=== PATIENT | male | born 1940 | race Two or more races ===

== ENCOUNTER 2017-12-24 19:02 | Inpatient (IN) | payer OTHER ==
[~2017-12-24] VITALS: Ht 177.8 cm; Wt 69.9 kg
[2017-12-25] MEDS ORDERED: LOSARTAN POTASS25 MG PO (11:18)
[2017-12-25] MEDS ORDERED: ARIMIDEZ PO (11:18)
[2017-12-25] MEDS ORDERED: ZOLADEX3.6 MG (11:19)
== END 2018-01-06 12:35 | disposition home or self-care (01) | DRG 583 ==
LOC: ADM 12-28 08:30 → CIR.AMB 12-28 08:30 → O/R 01-04 07:00 → SURG 01-04 07:00 → CIR.AMB 01-04 08:30 → EDSTATUS 01-04 08:30 → CIR.AMB 01-04 09:45 → SURG 01-04 11:53
PROVIDERS: Surgery
PROC: 0HTU0ZZ Resection of Left Breast, Open Approach (ICD-10-PCS; principal; 2018-01-04 09:45)
DX: C50.022 Malignant neoplasm of nipple and areola, left male breast (principal); S03.42XA Sprain of jaw, left side, initial encounter; R60.0 Localized edema

== ENCOUNTER 2017-12-27 07:16 | Outpatient (CLI) | payer OTHER ==
[~2017-12-27 07:16] MED LIST: ARIMIDEZ PO; LOSARTAN POTASS25 MG PO; ZOLADEX3.6 MG
== END 2017-12-27 07:32 | disposition home or self-care (01) ==
LOC: NUCLEAR 07:16
DX: I26.99 Other pulmonary embolism without acute cor pulmonale (principal); Z01.810 Encounter for preprocedural cardiovascular examination
CPT/HCPCS: 78452; 93017; A9500

== ENCOUNTER 2023-06-26 15:50 | Outpatient (CLI) | payer OTHER | END 2023-06-26 15:56 | disposition home or self-care (01) | LOC: RAD 15:50 | PROVIDERS: ATTEND Anesthesiology Pain Medicine | DX: S39.92XA Unspecified injury of lower back, initial encounter (principal) ==

== ENCOUNTER → 2023-07-02 | Outpatient (CLI) | payer OTHER | END | disposition home or self-care (01) | LOC: NUCLEAR 13:22 | PROVIDERS: ATTEND Anesthesiology Pain Medicine | DX: I73.9 Peripheral vascular disease, unspecified (principal) ==

== ENCOUNTER 2023-07-03 07:11 | Outpatient (CLI) | payer OTHER | END 2023-07-03 07:14 | disposition home or self-care (01) | LOC: NUCLEAR 07:11 | PROVIDERS: ATTEND Anesthesiology Pain Medicine | DX: I73.9 Peripheral vascular disease, unspecified (principal) ==

== ENCOUNTER 2023-08-06 10:42 | Inpatient (IN) | payer OTHER ==
[~2023-08-06] VITALS: Ht 177.8 cm; Wt 61.2 kg
--- NOTE | 2023-08-06 11:35 | NUR ---
PTE ALERTA Y ACTIVO ACOMPANADO POR HIJA, QUIEN REFIERE PTE SE PRESENTA DEVIL Y CON CONGESTION NASAL DESDE JUNO. HIJA REFIERE QUE PTE FUE OPERADO DE CANCER DE SENO TRAVIS.
--- NOTE | 2023-08-06 11:52 | NUR ---
PTE ALERTA Y ORIENTADO X3 EN COMPANIA DE FAMILIAR ES EVALUADO POR EL DR. BUCKNER EL CUAL ORDENA TRATAMIENTO MEDICO. SE OIRNETA SOBRE TRATAMIENTO ORDENADO, VERBALIZA ENTENDER. SE CANALIZA Y SE LYLA MUESTRAS DE LABORATORIO ISABELLE ORDEN MEDICA BAJO MEDIDAS ASEPTICAS Y SE ENVIAN A LABORATORIO. SE ADMINISTRA MEDICAMENTO ISABELLE ORDNE MEDICA. SE NOTIFICA XRAY PENDIENTE. SE JESSA EN OBSERVACION POR TRATAMIENTO.
[2023-08-06 11:54] LABS: HEMATOCRIT 37.4 % (39.0-48.0); HEMOGLOBIN 12.4 g/dL (13-16.00); MEAN CELL VOLUME 86.5 fL (80.0-100.00); MEAN CORPUSCULAR HEMOGLOBIN 28.7 pg (27.00-32.0); MEAN CORPUSCULAR HGB CONC 33.2 g/dl (32.0-36.0); PLATELET COUNT 364 K/uL (150-450); RED BLOOD COUNT 4.32 M/uL (4.00-6.00); RED CELL DISTRIBUTION WIDTH 14.8 % (11.5-14.5)
[2023-08-07 06:56] LABS: HEMATOCRIT 37.1 % (39.0-48.0); HEMOGLOBIN 12.3 g/dL (13-16.00); MEAN CELL VOLUME 87.5 fL (80.0-100.00); MEAN CORPUSCULAR HGB CONC 33.1 g/dl (32.0-36.0); PLATELET COUNT 318 K/uL (150-450); RED BLOOD COUNT 4.24 M/uL (4.00-6.00); RED CELL DISTRIBUTION WIDTH 15.1 % (11.5-14.5)
[2023-08-07] MEDS ORDERED: GABAPENTIN100 M2 (11:04)
[2023-08-07] MEDS ORDERED: ANASTROZOLE1 MG (11:05)
[2023-08-07] MEDS ORDERED: ABANEU-SL TABL1 EACH (11:05)
[2023-08-08 06:27] LABS: HEMATOCRIT 36.2 % (39.0-48.0); HEMOGLOBIN 12.3 g/dL (13-16.00); MEAN CELL VOLUME 86.2 fL (80.0-100.00); MEAN CORPUSCULAR HEMOGLOBIN 29.4 pg (27.00-32.0); MEAN CORPUSCULAR HGB CONC 34.1 g/dl (32.0-36.0); PLATELET COUNT 350 K/uL (150-450); RED BLOOD COUNT 4.19 M/uL (4.00-6.00); RED CELL DISTRIBUTION WIDTH 15.1 % (11.5-14.5)
[2023-08-09 07:33] LABS: HEMATOCRIT 35.1 % (39.0-48.0); HEMOGLOBIN 11.9 g/dL (13-16.00); MEAN CELL VOLUME 87.1 fL (80.0-100.00); MEAN CORPUSCULAR HEMOGLOBIN 29.5 pg (27.00-32.0); MEAN CORPUSCULAR HGB CONC 33.9 g/dl (32.0-36.0); PLATELET COUNT 335 K/uL (150-450); RED BLOOD COUNT 4.03 M/uL (4.00-6.00); RED CELL DISTRIBUTION WIDTH 14.7 % (11.5-14.5)
[2023-08-12 12:14] LABS: HEMATOCRIT 37.1 % (39.0-48.0); HEMOGLOBIN 12.8 g/dL (13-16.00); MEAN CELL VOLUME 86.7 fL (80.0-100.00); MEAN CORPUSCULAR HEMOGLOBIN 29.8 pg (27.00-32.0); MEAN CORPUSCULAR HGB CONC 34.4 g/dl (32.0-36.0); PLATELET COUNT 331 K/uL (150-450); RED BLOOD COUNT 4.29 M/uL (4.00-6.00); RED CELL DISTRIBUTION WIDTH 15.3 % (11.5-14.5)
[2023-08-14] MEDS ORDERED: BENZONATATE100 MG PO (11:28)
[2023-08-14] MEDS ORDERED: ABANEU-SL TABL1 EACH SL (11:28)
[2023-08-14] MEDS ORDERED: LASIX20 MG PO (11:28)
[2023-08-14] MEDS ORDERED: APETIGEN P12.5 MG/15 PO (11:28)
[2023-08-14] MEDS ORDERED: TUSSIN MUC100 MG/5 M PO (11:28)
[2023-08-14] MEDS ORDERED: TUSSIONEX PO (12:36)
== END 2023-08-14 15:32 | disposition home or self-care (01) | DRG 643 ==
LOC: ER 10:42 → MEDI 14:36 → SEC-K 14:36 → MEDI 16:23
PROVIDERS: Emergency Medicine; ADMIT Internal Medicine Geriatric Medicine; ATTEND Internal Medicine Geriatric Medicine
PROC: B246ZZZ Ultrasonography of Right and Left Heart (ICD-10-PCS; principal; 2023-08-06)
PROC: BB24ZZZ Computerized Tomography (CT Scan) of Bilateral Lungs (ICD-10-PCS; 2023-08-06)
PROC: B020ZZZ Computerized Tomography (CT Scan) of Brain (ICD-10-PCS; 2023-08-06)
PROC: 02HV33Z Insertion of Infusion Device into Superior Vena Cava, Percutaneous Approach (ICD-10-PCS; 2023-08-06)
PROC: 3E0F7GC Introduction of Other Therapeutic Substance into Respiratory Tract, Via Natural or Artificial Opening (ICD-10-PCS; 2023-08-06)
PROC: B54BZZZ Ultrasonography of Right Lower Extremity Veins (ICD-10-PCS; 2023-08-12)
DX: E22.2 Syndrome of inappropriate secretion of antidiuretic hormone (principal); I50.23 Acute on chronic systolic (congestive) heart failure; J15.7 Pneumonia due to Mycoplasma pneumoniae; J98.11 Atelectasis; E88.09 Other disorders of plasma-protein metabolism, not elsewhere classified; K59.00 Constipation, unspecified; I11.0 Hypertensive heart disease with heart failure; I87.2 Venous insufficiency (chronic) (peripheral)

== ENCOUNTER 2023-09-08 20:11 | Emergency (ER) | payer OTHER ==
[~2023-09-08] VITALS: Ht 177.8 cm; Wt 59.4 kg
[~2023-09-08 20:11] MED LIST changes: +ABANEU-SL TABL1 EACH; +ABANEU-SL TABL1 EACH SL; +ANASTROZOLE1 MG; +APETIGEN P12.5 MG/15 PO; +BENZONATATE100 MG PO; +GABAPENTIN100 M2; +LASIX20 MG PO; +TUSSIN MUC100 MG/5 M PO; +TUSSIONEX PO
[2023-09-08 22:16] LABS: URINE APPEARANCE Clear; URINE BILIRRUBIN Negative (NEGATIVE); URINE BLOOD Negative; URINE COLOR Yellow; URINE GLUCOSE Negative (NEGATIVE); URINE LEUKOCYTE Negative; URINE NITRATE Negative; URINE PROTEIN 30 (NEGATIVE)
[2023-09-08 22:18] LABS: HEMATOCRIT 38.1 % (39.0-48.0); HEMOGLOBIN 12.8 g/dL (13-16.00); MEAN CELL VOLUME 87.2 fL (80.0-100.00); MEAN CORPUSCULAR HEMOGLOBIN 29.3 pg (27.00-32.0); MEAN CORPUSCULAR HGB CONC 33.6 g/dl (32.0-36.0); PLATELET COUNT 360 K/uL (150-450); RED BLOOD COUNT 4.37 M/uL (4.00-6.00); RED CELL DISTRIBUTION WIDTH 15.9 % (11.5-14.5)
[2023-09-08 22:19] LABS: URINE BACTERIA 16.3 uL (0.0-1933); URINE EPITHELIAL CELLS 6.9 uL (0.0-38.8); URINE RBC 15.6 uL (0.0-20.8); URINE WBC 7.1 uL (0.0-23.2)
[2023-09-08 22:35] LABS: CALCIUM 8.8 mg/dL (8.5-10.1); CREATININE SERUM 0.57 mg/dL (0.70-1.30); GFR 135.86; POTASSIUM 4.36 mEq/L (3.5-5.1)
== END 2023-09-08 23:51 | disposition home or self-care (01) ==
LOC: ER 20:11
PROVIDERS: General Practice
DX: M54.50 Low back pain, unspecified (principal)
CPT/HCPCS: 36415; 96372; 99284; J1885

== ENCOUNTER 2023-09-10 02:01 | Emergency (ER) | payer OTHER ==
[~2023-09-10] VITALS: Ht 177.8 cm; Wt 59.4 kg
[2023-09-10] MEDS ORDERED: MIRALAX17 GM (02:32)
[2023-09-10 04:16] LABS: HEMOGLOBIN 12.9 g/dL (13-16.00); MEAN CELL VOLUME 87.1 fL (80.0-100.00); MEAN CORPUSCULAR HEMOGLOBIN 29.6 pg (27.00-32.0); MEAN CORPUSCULAR HGB CONC 33.9 g/dl (32.0-36.0); PLATELET COUNT 327 K/uL (150-450); RED BLOOD COUNT 4.37 M/uL (4.00-6.00); RED CELL DISTRIBUTION WIDTH 15.9 % (11.5-14.5)
[2023-09-10 04:30] LABS: PH,URINE 6.5 (5.0-8.0); URINE APPEARANCE Clear; URINE BILIRRUBIN Negative (NEGATIVE); URINE BLOOD Negative; URINE COLOR Yellow; URINE GLUCOSE Negative (NEGATIVE); URINE LEUKOCYTE Negative; URINE NITRATE Negative; URINE PROTEIN Negative (NEGATIVE); URINE UROBILINOGEN 0.2 E.U./dl
[2023-09-10 04:31] LABS: URINE EPITHELIAL CELLS 3.3 uL (0.0-38.8); URINE RBC 9.7 uL (0.0-20.8)
[2023-09-10 04:33] LABS: URINE WBC 1.6 uL (0.0-23.2)
[2023-09-10 04:43] LABS: ALBUMIN 3.4 gm/dL (3.4-5.0); BILIRUBIN TOTAL 0.76 mg/dL (0.3-1.2); CALCIUM 8.6 mg/dL (8.5-10.1); CREATININE SERUM 0.54 mg/dL (0.70-1.30); GFR 144.6; GLOBULINA 3.2 G/DL (2.4-3.5); POTASSIUM 3.85 mEq/L (3.5-5.1); TOTAL PROTEIN 6.6 gm/dL (6.4-8.2)
[2023-09-10] MEDS ORDERED: TRAM1TAB98 PO (14:18)
[2023-09-12] MEDS ORDERED: NAPROXEN500 MG PO (14:43)
[2023-09-12] MEDS ORDERED: ABANEU-SL TABL1 EACH SL (14:43)
[2023-09-12] MEDS ORDERED: LASIX20 MG (14:44)
[2023-09-12] MEDS ORDERED: DICLOFENAC POTA50 MG PO (17:05)
[2023-09-12] MEDS ORDERED: ZANAFLEX2 M1 PO (17:05)
== END 2023-09-10 15:11 | disposition home or self-care (01) ==
LOC: ER 02:01
PROVIDERS: General Practice
DX: M54.9 Dorsalgia, unspecified (principal); I10 Essential (primary) hypertension; R10.9 Unspecified abdominal pain; N28.1 Cyst of kidney, acquired; K57.30 Diverticulosis of large intestine without perforation or abscess without bleeding
CPT/HCPCS: 36415; 72100; 74177; 96365; 96366; 99284; J1885; J2270; J2360; J7042; Q9965

== ENCOUNTER → 2023-09-12 | Emergency (ER) | payer OTHER ==
[~2023-09-12] VITALS: Ht 177.8 cm; Wt 59.9 kg
[~2023-09-12] MED LIST changes: +DICLOFENAC POTA50 MG PO; +LASIX20 MG; +MIRALAX17 GM; +NAPROXEN500 MG PO; +TRAM1TAB98 PO; +ZANAFLEX2 M1 PO
[2023-09-12 16:10] LABS: HEMATOCRIT 38.4 % (39.0-48.0); MEAN CELL VOLUME 86.9 fL (80.0-100.00); MEAN CORPUSCULAR HEMOGLOBIN 29.5 pg (27.00-32.0); MEAN CORPUSCULAR HGB CONC 33.9 g/dl (32.0-36.0); PLATELET COUNT 336 K/uL (150-450); RED BLOOD COUNT 4.42 M/uL (4.00-6.00); RED CELL DISTRIBUTION WIDTH 15.9 % (11.5-14.5)
[2023-09-12 16:14] LABS: URINE APPEARANCE Clear; URINE BILIRRUBIN Negative (NEGATIVE); URINE BLOOD Negative; URINE COLOR Yellow; URINE GLUCOSE Negative (NEGATIVE); URINE LEUKOCYTE Negative; URINE NITRATE Negative; URINE PROTEIN Trace (NEGATIVE)
[2023-09-12 16:15] LABS: URINE BACTERIA 16.3 uL (0.0-1933); URINE EPITHELIAL CELLS 5.5 uL (0.0-38.8); URINE RBC 19.1 uL (0.0-20.8); URINE WBC 3.7 uL (0.0-23.2)
[2023-09-12 16:34] LABS: CALCIUM 8.7 mg/dL (8.5-10.1); CREATININE SERUM 0.65 mg/dL (0.70-1.30); GFR 116.75; POTASSIUM 4.51 mEq/L (3.5-5.1)
== END | disposition home or self-care (01) ==
LOC: ER 13:25
PROVIDERS: General Practice
DX: M54.50 Low back pain, unspecified (principal); M51.36 Other intervertebral disc degeneration, lumbar region; M43.16 Spondylolisthesis, lumbar region; Z85.3 Personal history of malignant neoplasm of breast
CPT/HCPCS: 36415; 72131; 96365; 96372; 99284; J1100; J1885

== ENCOUNTER 2023-10-01 10:45 | Outpatient (CLI) | payer OTHER ==
[2023-10-01] MEDS ORDERED: ZANAFLEX2 MG PO (18:08)
== END 2023-10-01 10:59 | disposition home or self-care (01) ==
LOC: SONOGRAMA 10:45
PROVIDERS: ATTEND Surgery
DX: N60.11 Diffuse cystic mastopathy of right breast (principal); N60.12 Diffuse cystic mastopathy of left breast; K80.20 Calculus of gallbladder without cholecystitis without obstruction; K70.9 Alcoholic liver disease, unspecified

== ENCOUNTER 2023-10-08 13:16 | Outpatient (CLI) | payer OTHER ==
[~2023-10-08 13:16] MED LIST changes: +ZANAFLEX2 MG PO
== END 2023-10-08 13:19 | disposition home or self-care (01) ==
LOC: NUCLEAR 13:16
DX: I73.9 Peripheral vascular disease, unspecified (principal)

== ENCOUNTER 2023-12-10 13:23 | Outpatient (CLI) | payer OTHER | END 2023-12-10 13:25 | disposition home or self-care (01) | LOC: SONOGRAMA 13:23 | PROVIDERS: ATTEND Urology | DX: R33.9 Retention of urine, unspecified (principal); R40.1 Stupor ==

== ENCOUNTER 2024-05-23 07:47 | Emergency (ER) | payer OTHER ==
[~2024-05-23] VITALS: Ht 177.8 cm; Wt 52.6 kg
[2024-05-23] MEDS ORDERED: MEDROL2 MG PO (07:57)
[2024-05-23] MEDS ORDERED: RINGERS SOLUTION,LACTATED 1,000 ML IV STA (08:29)
[2024-05-23 09:11] LABS: HEMATOCRIT 43.1 % (39.0-48.0); HEMOGLOBIN 14.8 g/dL (13-16.00); MEAN CORPUSCULAR HEMOGLOBIN 31.2 pg (27.00-32.0); MEAN CORPUSCULAR HGB CONC 34.3 g/dl (32.0-36.0); PLATELET COUNT 304 K/uL (150-450); RED BLOOD COUNT 4.74 M/uL (4.00-6.00); RED CELL DISTRIBUTION WIDTH 16.4 % (11.5-14.5)
[2024-05-23 10:02] LABS: ALBUMIN 3.3 gm/dL (3.4-5.0); BILIRUBIN TOTAL 0.78 mg/dL (0.3-1.2); BILIRUBIN,CONJUGATED 0.2 mg/dL (0.0-0.2); BILIRUBIN,UNCONJUGATED 0.58 mg/dL (0.0-0.6); CALCIUM 8.8 mg/dL (8.5-10.1); CREATININE SERUM 0.55 mg/dL (0.70-1.30); GFR 141.24; POTASSIUM 3.65 mEq/L (3.5-5.1); TOTAL PROTEIN 6.2 gm/dL (6.4-8.2)
[2024-05-23 10:24] LABS: PH,URINE 5.5 (5.0-8.0); URINE APPEARANCE Clear; URINE BILIRRUBIN Negative (NEGATIVE); URINE BLOOD Negative; URINE COLOR Yellow; URINE GLUCOSE Negative (NEGATIVE); URINE LEUKOCYTE Negative; URINE NITRATE Negative; URINE PROTEIN Negative (NEGATIVE)
[2024-05-23 10:28] LABS: URINE BACTERIA 12.5 uL (0.0-1933); URINE RBC 3.5 uL (0.0-20.8); URINE WBC 2.7 uL (0.0-23.2)
== END 2024-05-23 12:03 | disposition home or self-care (01) ==
LOC: ER 07:48
PROVIDERS: General Practice
DX: R34 Anuria and oliguria (principal); T38.5X5A Adverse effect of other estrogens and progestogens, initial encounter; I10 Essential (primary) hypertension

== ENCOUNTER 2024-05-23 11:52 | Outpatient (CLI) | payer OTHER ==
[~2024-05-23 11:52] MED LIST changes: +MEDROL2 MG PO
== END 2024-05-23 12:52 | disposition home or self-care (01) ==
LOC: SONOGRAMA 11:52
DX: R34 Anuria and oliguria (principal)

== ENCOUNTER 2024-05-30 00:46 | Emergency (ER) | payer OTHER ==
[~2024-05-30] VITALS: Ht 177.8 cm; Wt 54.0 kg
[2024-05-30] MEDS ORDERED: 0.9 % SODIUM CHLORIDE 500 ML IV STA (01:29)
[2024-05-30 01:56] LABS: HEMATOCRIT 41.5 % (39.0-48.0); HEMOGLOBIN 14.1 g/dL (13-16.00); MEAN CELL VOLUME 92.7 fL (80.0-100.00); MEAN CORPUSCULAR HEMOGLOBIN 31.6 pg (27.00-32.0); MEAN CORPUSCULAR HGB CONC 34.1 g/dl (32.0-36.0); PLATELET COUNT 287 K/uL (150-450); RED BLOOD COUNT 4.47 M/uL (4.00-6.00)
[2024-05-30 02:18] LABS: INR 1.08; PARTIAL THROMBOPLASTIN TIME 28.2 SECONDS (22.0-34.0); PROTHROMBIN TIME 11.3 SECONDS (9.0-11.5)
[2024-05-30 02:22] LABS: BILIRUBIN TOTAL 0.62 mg/dL (0.3-1.2); CALCIUM 8.4 mg/dL (8.5-10.1); CREATININE SERUM 0.46 mg/dL (0.70-1.30); GFR 173.58; GLOBULINA 2.8 G/DL (2.4-3.5); POTASSIUM 3.85 mEq/L (3.5-5.1); TOTAL PROTEIN 5.8 gm/dL (6.4-8.2)
[2024-05-30 02:24] LABS: URINE APPEARANCE Clear; URINE BILIRRUBIN Negative (NEGATIVE); URINE BLOOD Negative; URINE COLOR Yellow; URINE GLUCOSE Negative (NEGATIVE); URINE LEUKOCYTE Negative; URINE NITRATE Negative; URINE PROTEIN Negative (NEGATIVE)
[2024-05-30 02:28] LABS: URINE RBC 3.6 uL (0.0-20.8)
[2024-05-30 02:38] LABS: URINE EPITHELIAL CELLS 0.4 uL (0.0-38.8); URINE WBC 1.2 uL (0.0-23.2)
== END 2024-05-30 10:17 | disposition home or self-care (01) ==
LOC: ER 00:46
DX: R53.81 Other malaise (principal); R41.82 Altered mental status, unspecified; F03.90 Unspecified dementia, unspecified severity, without behavioral disturbance, psychotic disturbance, mood disturbance, and anxiety
CPT/HCPCS: 36415; 70450; 96365; 96366; 99284; J7042

== ENCOUNTER 2024-05-31 17:04 | Inpatient (IN) | payer OTHER ==
[~2024-05-31] VITALS: Ht 152.4 cm; Wt 53.5 kg
--- NOTE | 2024-05-31 17:18 | NUR ---
PTE LLEGA A ALIYA DE EMERGENCIAS EN AMBULANCIA EN COMPANIA DE HERNÁNDEZ HIJA QUIEN REFIERE QUE HERNÁNDEZ PADRE PRESENTA DEBILIDAD DESDE LA MANANA DE HOY. SE LYLA S/V Y SE UBICA EN MAGNUS AREA DE OBSERVACION.
[2024-05-31] MEDS ORDERED: 0.9 % SODIUM CHLORIDE 500 ML IV ONE (17:30)
--- NOTE | 2024-05-31 18:05 | NUR ---
PACIENTE ALERTA Y ORIENTADO EN PERSONA, NEGRITA QUIROZ EDUCA A FAMILIAR SOBRE PROCESO DE CHRISTINA DE MUESTRAS Y REFIERE ENTENDER. SE EJECUTAN ORDENES BAJO MEDIDAS ASEPTICAS.
[2024-05-31 18:23] LABS: HEMOGLOBIN 14.8 g/dL (13-16.00); MEAN CELL VOLUME 92.7 fL (80.0-100.00); MEAN CORPUSCULAR HEMOGLOBIN 31.2 pg (27.00-32.0); MEAN CORPUSCULAR HGB CONC 33.6 g/dl (32.0-36.0); PLATELET COUNT 292 K/uL (150-450); RED BLOOD COUNT 4.75 M/uL (4.00-6.00); RED CELL DISTRIBUTION WIDTH 16.3 % (11.5-14.5)
[2024-05-31 19:58] LABS: ABG PH 7.449 (7.35-7.45); ABG PO2 115.2 mmHg (80-100); ABG pCO2 32.7 mmHg (35-45); SaO2 98.7 %
[2024-05-31 19:59] LABS: BASE EXCESS -0.9 mmol/l; BICARBONATE 22.2 mmol/l (23-25); Tco2 23.2 mmol/l; allen test SATISFACTORY; o2 21 %; puncture site RADIAL RIGHT
[2024-05-31 20:18] LABS: INR 1.04; PROTHROMBIN TIME 10.9 SECONDS (9.0-11.5)
[2024-05-31 20:34] LABS: ALBUMIN 3.1 gm/dL (3.4-5.0); BILIRUBIN TOTAL 0.44 mg/dL (0.3-1.2); CALCIUM 8.3 mg/dL (8.5-10.1); CREATININE SERUM 0.32 mg/dL (0.70-1.30); GFR 263.87; GLOBULINA 2.5 G/DL (2.4-3.5); POTASSIUM 4.43 mEq/L (3.5-5.1); TOTAL PROTEIN 5.6 gm/dL (6.4-8.2); TSH 0.805 uIU/mL (0.358-3.74)
--- NOTE | 2024-05-31 23:09 | NUR ---
SE RECIBE PACIENTE ALERTA Y ORIENTADO EN PERSONA EN CAMA CON BARANDAS ELEVADAS POR SEGURIDAD EN COMPANIA DE FAMILIAR. RECIBIENDO IV'S 0.9NSS BAJANDO A 60ML/HR AREA DE VENOPUNCION ASAF DE EDEMA Y ERITEMA. PENDIENTE MUESTRA DE U/A Y RESULTADO DE CT. SE MANTIENE BAJO OBSERVACION.
--- NOTE | 2024-06-01 07:04 | NUR ---
SE RECIBE PTE ALERTA, ORIENTADO EN PERSONA. SE OBSERVA CON BUEN PATRON RESP. EN MAGNUS BAJA CON BARANDAS ELEVADAS POR SEGURIDAD. CANALIZACON PATENTE #20 PATENTE, ASAF DE EDEMA Y ERITEMA, RECIBIENDO IV FLUIDS. PEND ENTREGAR UA Y CONSULTA CON DR MALONEY
[2024-06-01] MEDS ORDERED: 0.9 % SODIUM CHLORIDE 1,000 ML IV SCH (12:45)
[2024-06-01] MEDS ORDERED: LOSARTAN POTASSIUM 25 MG TABLET PO SCH (12:47)
[2024-06-01] MEDS ORDERED: METHYLPREDNISOLONE 4 MG TABLET PO SCH (12:48)
[2024-06-01 13:31] LABS: PH,URINE 6.5 (5.0-8.0); URINE APPEARANCE Clear; URINE BILIRRUBIN Negative (NEGATIVE); URINE BLOOD Negative; URINE COLOR Yellow; URINE GLUCOSE Negative (NEGATIVE); URINE LEUKOCYTE Negative; URINE NITRATE Negative; URINE PROTEIN Negative (NEGATIVE); URINE UROBILINOGEN 0.2 E.U./dl
[2024-06-01 13:50] LABS: URINE BACTERIA 12.5 uL (0.0-1933); URINE RBC 5.8 uL (0.0-20.8)
[2024-06-01 13:56] LABS: URINE WBC 0.5 uL (0.0-23.2)
[2024-06-01 15:07] LABS: PROSTATIC SPECIFIC ANTIGEN 0.362 NG/ML (0.010-4.00)
[2024-06-01 17:19] LABS: PH,URINE 6.5 (5.0-8.0); URINE APPEARANCE Clear; URINE BILIRRUBIN Negative (NEGATIVE); URINE BLOOD Negative; URINE COLOR Yellow; URINE GLUCOSE Negative (NEGATIVE); URINE LEUKOCYTE Negative; URINE NITRATE Negative; URINE PROTEIN Negative (NEGATIVE); URINE UROBILINOGEN 0.2 E.U./dl
[2024-06-01 17:22] LABS: URINE BACTERIA 6.2 uL (0.0-1933); URINE RBC 7.9 uL (0.0-20.8)
[2024-06-01 17:32] LABS: URINE EPITHELIAL CELLS 0.7 uL (0.0-38.8); URINE WBC 0.7 uL (0.0-23.2)
[2024-06-01] MEDS ORDERED: FAMOtidine 20 MG TABLET PO SCH (21:00)
[2024-06-01] MEDS ORDERED: METHYLPREDNISOLONE SOD SUCC 40 MG VIAL IV STA (22:08)
[2024-06-02 06:04] LABS: HEMATOCRIT 42.9 % (39.0-48.0); HEMOGLOBIN 14.9 g/dL (13-16.00); MEAN CORPUSCULAR HGB CONC 34.8 g/dl (32.0-36.0); PLATELET COUNT 280 K/uL (150-450); RED BLOOD COUNT 4.66 M/uL (4.00-6.00); RED CELL DISTRIBUTION WIDTH 16.3 % (11.5-14.5)
[2024-06-02 06:46] LABS: ERYTHROCYTE SEDIMENTATION RATE 9 mm/hr
[2024-06-02 06:48] LABS: ALBUMIN 2.9 gm/dL (3.4-5.0); ALKALINE PHOSPHATASE 70 U/L (50-136); ALT/SGPT 11 U/L (12-78); ANION GAP 8 (10.0-20.0); AST/SGOT 14 U/L (15-37); BILIRUBIN TOTAL 0.71 mg/dL (0.3-1.2); BLOOD UREA NITROGEN 9 mg/dL (7-18); BUN CREA RATIO 27 (7.0-25.0); CALCIUM 8.2 mg/dL (8.5-10.1); CARBON DIOXIDE 26 mEq/L (21-32); CHLORIDE 101 mmol/L (98-107); CREATININE SERUM 0.33 mg/dL (0.70-1.30); GFR 254.66; GLOBULINA 2.6 G/DL (2.4-3.5); GLUCOSE FASTING 67 mg/dL (65-100); OSMOLALITY SERUM 260 MOSM/KG (275-295); POTASSIUM 3.81 mEq/L (3.5-5.1); SODIUM 131 mmol/L (136-145); T4 FREE 1.26 NG/ML (0.76-1.46); TOTAL PROTEIN 5.5 gm/dL (6.4-8.2)
[2024-06-02 06:52] LABS: C-REACTIVE PROTEIN < 0.29 MG/DL (0.00-0.29)
[2024-06-02] MEDS ORDERED: ENOXAPARIN SODIUM 30 MG/0.3 ML SYRINGE SUBCUTANEO SCH (09:00)
[2024-06-02] MEDS ORDERED: METHYLPREDNISOLONE SOD SUCC 40 MG VIAL IV SCH (09:00)
[2024-06-02 10:18] LABS: PROCALCITONIN 0.027 ng/ml (0.020-0.080)
[2024-06-02 10:22] LABS: CORTISOL 18.97 ug/dl
[2024-06-02 21:33] LABS: ABG PH 7.441 (7.35-7.45); ABG PO2 95.5 mmHg (80-100); ABG pCO2 36.5 mmHg (35-45); BASE EXCESS 0.5 mmol/l; BICARBONATE 24.3 mmol/l (23-25); SaO2 97.7 %; Tco2 25.4 mmol/l; allen test SATISFACTORY; o2 21 %; puncture site RADIAL RIGHT
[2024-06-03] MEDS ORDERED: SPIRONOLACTONE 25 MG TABLET PO SCH (09:00)
[2024-06-03] MEDS ORDERED: POLYETHYLENE GLYCOL 3350 17 GM BLIST.PACK PO STA (13:21)
[2024-06-03] MEDS ORDERED: FAMOtidine 20 MG TABLET PO SCH (21:00)
[2024-06-03] MEDS ORDERED: POLYETHYLENE GLYCOL 3350 17 GM BLIST.PACK PO SCH (21:00)
[2024-06-04 07:56] LABS: CREATININE SERUM 0.5 mg/dL (0.70-1.30); GFR 157.66; MAGNESIUM 2.2 mg/dL (1.8-2.4); PHOSPHOROUS 3.9 mg/dL (2.5-4.9); POTASSIUM 4.61 mEq/L (3.5-5.1)
[2024-06-04] MEDS ORDERED: LOSARTAN POTASSIUM 25 MG TABLET PO STA (12:09)
[2024-06-05] MEDS ORDERED: LOSARTAN POTASSIUM 50 MG TABLET PO SCH (09:00)
[2024-06-05] MEDS ORDERED: PREDNISONE 5 MG TABLET PO SCH ×2 (09:00→17:00)
[2024-06-05] MEDS ORDERED: METOPROLOL SUCCINATE 25 MG TAB.SR.24H PO SCH (09:00)
[2024-06-06 14:06] LABS: HEMATOCRIT 43.1 % (39.0-48.0); HEMOGLOBIN 14.9 g/dL (13-16.00); MEAN CELL VOLUME 90.6 fL (80.0-100.00); MEAN CORPUSCULAR HEMOGLOBIN 31.3 pg (27.00-32.0); MEAN CORPUSCULAR HGB CONC 34.5 g/dl (32.0-36.0); PLATELET COUNT 295 K/uL (150-450); RED BLOOD COUNT 4.76 M/uL (4.00-6.00); RED CELL DISTRIBUTION WIDTH 15.9 % (11.5-14.5)
[2024-06-06 14:30] LABS: CALCIUM 8.8 mg/dL (8.5-10.1); CREATININE SERUM 0.55 mg/dL (0.70-1.30); GFR 141.24; PHOSPHOROUS 3.5 mg/dL (2.5-4.9); POTASSIUM 4.53 mEq/L (3.5-5.1)
[2024-06-06] MEDS ORDERED: PREDNISONE 5 MG TABLET PO STA (16:37)
[2024-06-06] MEDS ORDERED: SPIRONOLACTONE 25 MG TABLET PO SCH (17:00)
[2024-06-06] MEDS ORDERED: PREDNISONE 5 MG TABLET PO SCH (21:00)
[2024-06-07 08:09] LABS: ALBUMIN 3.4 gm/dL (3.4-5.0); BILIRUBIN TOTAL 0.82 mg/dL (0.3-1.2); CALCIUM 8.7 mg/dL (8.5-10.1); CREATININE SERUM 0.48 mg/dL (0.70-1.30); GFR 165.26; GLOBULINA 2.8 G/DL (2.4-3.5); POTASSIUM 5.08 mEq/L (3.5-5.1); TOTAL PROTEIN 6.2 gm/dL (6.4-8.2); URIC ACID 2.5 mg/dL (3.5-8.5)
[2024-06-07 09:21] LABS: PH,URINE 6.5 (5.0-8.0); URINE APPEARANCE Clear; URINE BILIRRUBIN Negative (NEGATIVE); URINE BLOOD Negative; URINE COLOR Yellow; URINE GLUCOSE Negative (NEGATIVE); URINE LEUKOCYTE Negative; URINE NITRATE Negative; URINE PROTEIN Negative (NEGATIVE); URINE UROBILINOGEN 0.2 E.U./dl
[2024-06-07 09:24] LABS: URINE RBC 7.3 uL (0.0-20.8)
[2024-06-07 09:35] LABS: URINE EPITHELIAL CELLS 0.7 uL (0.0-38.8); URINE WBC 0.9 uL (0.0-23.2)
[2024-06-07] MEDS ORDERED: SPIRONOLACTONE 25 MG TABLET PO SCH (17:00)
[2024-06-07] MEDS ORDERED: METOPROLOL SUCCINATE 25 MG TAB.SR.24H PO SCH (21:00)
[2024-06-08 07:55] LABS: CALCIUM 8.8 mg/dL (8.5-10.1); CREATININE SERUM 0.5 mg/dL (0.70-1.30); GFR 157.66; MAGNESIUM 2.3 mg/dL (1.8-2.4); PHOSPHOROUS 2.8 mg/dL (2.5-4.9); POTASSIUM 4.63 mEq/L (3.5-5.1)
[2024-06-08] MEDS ORDERED: SPIRONOLACTONE25 MG PO (11:58)
[2024-06-08] MEDS ORDERED: FAMOTIDINE20 MG PO (11:58)
[2024-06-08] MEDS ORDERED: PREDNISONE 5MG PO (11:58)
[2024-06-08] MEDS ORDERED: COZAAR50 MG PO (11:58)
[2024-06-08] MEDS ORDERED: ASA81 MG PO (11:58)
[2024-06-08] MEDS ORDERED: TOPROL XL25 M1 PO (11:58)
== END 2024-06-08 14:48 | disposition home or self-care (01) | DRG 643 ==
LOC: ER 17:04 → MEDI 06-01 13:48
PROVIDERS: General Practice; Internal Medicine; Internal Medicine Endocrinology, Diabetes & Metabolism; ADMIT Internal Medicine Geriatric Medicine; ATTEND Internal Medicine Geriatric Medicine
PROC: B020ZZZ Computerized Tomography (CT Scan) of Brain (ICD-10-PCS; principal; 2024-05-31)
PROC: B345ZZZ Ultrasonography of Bilateral Common Carotid Arteries (ICD-10-PCS; 2024-06-01)
PROC: B348ZZZ Ultrasonography of Bilateral Internal Carotid Arteries (ICD-10-PCS; 2024-06-01)
PROC: B246ZZZ Ultrasonography of Right and Left Heart (ICD-10-PCS; 2024-06-01)
PROC: 4A12X4Z Monitoring of Cardiac Electrical Activity, External Approach (ICD-10-PCS; 2024-06-02)
DX: E27.3 Drug-induced adrenocortical insufficiency (principal); I50.23 Acute on chronic systolic (congestive) heart failure; I42.8 Other cardiomyopathies; I67.89 Other cerebrovascular disease; I11.0 Hypertensive heart disease with heart failure; E86.0 Dehydration; M25.551 Pain in right hip; Z85.3 Personal history of malignant neoplasm of breast; R53.1 Weakness; R40.4 Transient alteration of awareness

== ENCOUNTER 2024-11-14 00:20 | Inpatient (IN) | payer OTHER ==
[~2024-11-14] VITALS: Ht 177.8 cm; Wt 109.8 kg
[~2024-11-14 00:20] MED LIST changes: +ASA81 MG PO; +COZAAR50 MG PO; +FAMOTIDINE20 MG PO; +PREDNISONE 5MG PO; +SPIRONOLACTONE25 MG PO; +TOPROL XL25 M1 PO
--- NOTE | 2024-11-14 00:37 | NUR ---
SE RECIBE PACIENTE ALERTA Y ORIENTADO X3 EN COMPANIA DE FAMILIAR LA CUAL REFIERE TRAER A PACIENTE A CAUSA DE HINCHAZON EN LOS TOBILLOS. PACIENTE REFIERE QUE DR. RODRIGUES LE DA SEGUIMIENTO Y HERNÁNDEZ INTERNISTA ES DR. DARBY. SE REALIZA EKG, SE MIDEN S/V Y SE UBICA.
--- NOTE | 2024-11-14 03:03 | NUR ---
SE EDUCA A PACIENTE SOBRE TRATAMIENTO MEDICO EL CUAL REFIERE ENTENDER. SE PROCEDE A MARY MUESTRAS DE LAB BAJO MEDIDAS ASEPTICAS Y ISABELLE ORDEN MEDICA.
[2024-11-14 03:20] LABS: ERYTHROCYTE SEDIMENTATION RATE 4 mm/hr
[2024-11-14 03:21] LABS: HEMOGLOBIN 15.9 g/dL (13-16.00); MEAN CELL VOLUME 95.5 fL (80.0-100.00); MEAN CORPUSCULAR HEMOGLOBIN 32.3 pg (27.00-32.0); MEAN CORPUSCULAR HGB CONC 33.8 g/dl (32.0-36.0); PLATELET COUNT 307 K/uL (150-450); RED BLOOD COUNT 4.92 M/uL (4.00-6.00); RED CELL DISTRIBUTION WIDTH 15.6 % (11.5-14.5)
[2024-11-14 03:39] LABS: INR 1.11; PARTIAL THROMBOPLASTIN TIME 27.7 SECONDS (22.0-34.0)
[2024-11-14 03:56] LABS: ALBUMIN 3.2 gm/dL (3.4-5.0); BILIRUBIN TOTAL 0.59 mg/dL (0.3-1.2); CALCIUM 8.9 mg/dL (8.5-10.1); CREATININE SERUM 0.51 mg/dL (0.70-1.30); GFR 154.1; GLOBULINA 2.6 G/DL (2.4-3.5); POTASSIUM 4.36 mEq/L (3.5-5.1); TOTAL PROTEIN 5.8 gm/dL (6.4-8.2)
--- NOTE | 2024-11-14 07:17 | NUR ---
SE RECIBE PTE ALERTA Y ORIENTADO X3 EL MISMO EN MAGNUS BAJA POR SEGURIDAD Y BARANDAS ELEVADAS JUNTO A FAMILIARES. SE OBSERVA CANALIZACION EN BRAZO DERECHO EN H/L. FAMILIARES REFEIREN QUE BRAZO TRAVIS NO SE PUEDE UTILIZAR Y SE COLOCA SHERMAN DE PREVENCION Y NO UTILIZAR BRAZO. SE DOCUMENTAN VITALES Y SE JESSA PTE EN DESAYUNO JUNTO A FAM.
--- NOTE | 2024-11-14 07:42 | NUR ---
SE NOTIFICA ESTUDIO PENDIENTE.
[2024-11-14] MEDS ORDERED: PREDNISONE 10 MG TABLET PO ONE (12:30)
[2024-11-14] MEDS ORDERED: PREDNISONE 5 MG TABLET PO ONE (13:00)
--- NOTE | 2024-11-14 19:45 | NUR ---
SE CONTACTA A VIA TELEFONICA PARA ACLARAR ORDEN DE MEDICAMENTO GIANNI ORDENA ADMINISTRAR LOS MISMOS JAMES VEZ AL MAN. SE REALIZA READBCAK X2.
[2024-11-14] MEDS ORDERED: ACETAMINOPHEN 500 MG GEL..CAP PO PRN (20:30)
[2024-11-14] MEDS ORDERED: FUROsemide 20 MG/2 ML VIAL IV SCH (21:00)
[2024-11-14] MEDS ORDERED: ENTRESTO PO SCH (21:00)
[2024-11-15 01:10] VITALS: BP 139/72; O2SAT 100
[2024-11-15] MEDS ORDERED: ** NF ** (JARDIANCE 10 MG) PO SCH (09:00)
[2024-11-15] MEDS ORDERED: ENOXAPARIN SODIUM 40 MG/0.4 ML SYRINGE SUBCUTANEO SCH (09:00)
[2024-11-15] MEDS ORDERED: PREDNISONE 5 MG TABLET PO SCH (09:00)
[2024-11-15] MEDS ORDERED: FUROsemide 20 MG/2 ML VIAL IV SCH (09:00)
[2024-11-15] MEDS ORDERED: FAMOTIDINE/PF 20 MG in 0.9 % SODIUM CHLORIDE 8 ML IV PUSH SCH (09:00)
[2024-11-15 09:04] VITALS: BP 119/71; O2SAT 97
[2024-11-15 14:21] LABS: PH,URINE 5.5 (5.0-8.0); URINE APPEARANCE Clear; URINE BILIRRUBIN Negative (NEGATIVE); URINE BLOOD Negative; URINE COLOR Yellow; URINE KETONE 15 (NEGATIVE); URINE LEUKOCYTE Negative; URINE NITRATE Negative; URINE PROTEIN Negative (NEGATIVE); URINE UROBILINOGEN 0.2 E.U./dl
[2024-11-15 14:25] LABS: URINE BACTERIA 9.7 uL (0.0-1933); URINE EPITHELIAL CELLS 1.5 uL (0.0-38.8); URINE WBC 2.9 uL (0.0-23.2)
[2024-11-15 14:32] LABS: URINE CAST 0.44 uL (0.0-1.40); URINE GLUCOSE >=1000 MG/DL (NEGATIVE); URINE RBC 1.6 uL (0.0-20.8)
[2024-11-15 14:53] LABS: CALCIUM 8.7 mg/dL (8.5-10.1); CREATININE SERUM 0.47 mg/dL (0.70-1.30); GFR 169.33; MAGNESIUM 2.1 mg/dL (1.8-2.4); PHOSPHOROUS 2.9 mg/dL (2.5-4.9); POTASSIUM 3.52 mEq/L (3.5-5.1)
[2024-11-15 16:30] VITALS: BP 97/63; O2SAT 99
[2024-11-15 19:50] VITALS: O2SAT 98
[2024-11-15] MEDS ORDERED: ENTRESTO PO SCH (21:00)
[2024-11-16] VITALS (7 sets, daily range): BP systolic 98–114; BP diastolic 64–75; O2SAT 95–99
[2024-11-16] MEDS ORDERED: JARDIANCE 10 MG PO SCH (09:00)
[2024-11-16] MEDS ORDERED: POLYETHYLENE GLYCOL 3350 17 GM BLIST.PACK PO SCH (21:00)
[2024-11-17] VITALS (8 sets, daily range): BP systolic 106–114; BP diastolic 68–73; O2SAT 97–99
[2024-11-17] MEDS ORDERED: FUROsemide 20 MG TABLET PO SCH (09:00)
[2024-11-17 13:01] LABS: CALCIUM 8.4 mg/dL (8.5-10.1); CREATININE SERUM 0.42 mg/dL (0.70-1.30); GFR 192.8; MAGNESIUM 1.9 mg/dL (1.8-2.4); PHOSPHOROUS 2.4 mg/dL (2.5-4.9); POTASSIUM 3.77 mEq/L (3.5-5.1)
[2024-11-17] MEDS ORDERED: LACTULOSE 20 G/30 ML BLIST.PACK PO STA (13:08)
[2024-11-17] MEDS ORDERED: JARDIANCE10 MG PO (13:16)
[2024-11-17] MEDS ORDERED: ENTRESTO 24 MG1 EACH PO (13:16)
[2024-11-17] MEDS ORDERED: FUROSEMIDE20 MG PO (13:16)
[2024-11-17] MEDS ORDERED: PREDNISONE 5MG PO (13:16)
[2024-11-17] MEDS ORDERED: NAPH,MB-DB/K PH,MBDB 1 PKT PACKET PO NR (13:45)
== END 2024-11-17 18:46 | disposition home or self-care (01) | DRG 293 ==
LOC: ER 00:20 → SURH 21:39
PROVIDERS: General Practice; ADMIT Internal Medicine Geriatric Medicine; ATTEND Internal Medicine Geriatric Medicine
PROC: B54DZZZ Ultrasonography of Bilateral Lower Extremity Veins (ICD-10-PCS; principal; 2024-11-14)
PROC: B24BYZZ Ultrasonography of Heart with Aorta using Other Contrast (ICD-10-PCS; 2024-11-14)
PROC: 4A12X4Z Monitoring of Cardiac Electrical Activity, External Approach (ICD-10-PCS; 2024-11-15)
DX: I50.9 Heart failure, unspecified (principal); R06.02 Shortness of breath; M25.572 Pain in left ankle and joints of left foot

== ENCOUNTER → 2024-12-16 10:26 | Outpatient (CLI) | payer OTHER ==
[~2024-12-16 10:26] MED LIST changes: +ENTRESTO 24 MG1 EACH PO; +FUROSEMIDE20 MG PO; +JARDIANCE10 MG PO
== END | disposition home or self-care (01) ==
LOC: LAB 10:26
PROVIDERS: ATTEND Specialist
DX: L98.499 Non-pressure chronic ulcer of skin of other sites with unspecified severity (principal); L02.91 Cutaneous abscess, unspecified

== ENCOUNTER 2024-12-22 10:40 | Outpatient (CLI) | payer OTHER ==
[2024-12-24 06:04] LABS: Result I Hyphae observed (.)
== END 2024-12-22 10:41 | disposition home or self-care (01) ==
LOC: LAB 10:40
PROVIDERS: ATTEND Specialist
DX: L98.499 Non-pressure chronic ulcer of skin of other sites with unspecified severity (principal); L02.91 Cutaneous abscess, unspecified; B36.9 Superficial mycosis, unspecified

== ENCOUNTER 2025-01-30 10:23 | Inpatient (IN) | payer OTHER ==
[~2025-01-30] VITALS: Ht 167.6 cm; Wt 45.4 kg
--- NOTE | 2025-01-30 10:44 | NUR ---
PACIENTE ALERTA Y ORIENTADO X3 ACOMPANADO DE HERNÁNDEZ HIJA. FAMILIAR REFIERE PACIENTE DE CHF, SE OBSERVA CON MASK NON REBREATHING OXIGENANDO A 96%. PERSONAL DE AMBULANCIA REFIEIRE EN EL HOGAR ESTAR OXIGENANDO A 89% SIN OXIGENO. SE OBSERVA CON PICCLINE Y EN BRAZO DERECHO, PTE CON ULCERA EN PIE TRAVIS, CON VAG SYSTEM, SE REALIZA EKG SE LE PRESENTA A DR. POST Y SE MIDE S/V Y SE UBICA EN CRITICO 1 BAJO MONITOREO CARDIACO, OXIGENO Y BARANDAS ELEVADAS.
[2025-01-30] MEDS ORDERED: 0.9 % SODIUM CHLORIDE 1,000 ML IV SCH (11:15)
--- NOTE | 2025-01-30 11:27 | NUR ---
SE RECIBE PTE A LA UNIDAD DE CRITICO ALIYA DE EMERGENCIA EN COMPANIA DE PARAMEDICOS Y FAMILIAR QUIEN REFIERE PTE QUEJARSE DE DOLOR DE PECHO Y FALTA DE AIRE. SE CONECTA A MONITOR CARDIACO Y OXIMETRIA CONTINUA EN POSICION WHITE CARLOS. PTE CON PICC LINE BRAZO DERECHA CON DRIP DE 0.9NSS BAJANDO A 100MLS/HR. SE OBSERVA MANO Y ANTEBRAZO TRAVIS CON EDEMA. PTE CON NON REBREATHING AL 50% ABDOMEN DEPRESIBLE AL TACTO. EXTREMIDADES INFERIORES ASAF DE EDEMA. PTE CON ULCERA EN MIKE TRAVIS. SE MANTIENE BAJO OBSERVACION POR CAMBIOS SIGNIFICATIVOS
[2025-01-30 11:28] LABS: HEMATOCRIT 37.5 % (39.0-48.0); HEMOGLOBIN 12.7 g/dL (13-16.00); MEAN CELL VOLUME 94.3 fL (80.0-100.00); MEAN CORPUSCULAR HEMOGLOBIN 31.8 pg (27.00-32.0); MEAN CORPUSCULAR HGB CONC 33.7 g/dl (32.0-36.0); PLATELET COUNT 416 K/uL (150-450); RED BLOOD COUNT 3.98 M/uL (4.00-6.00); RED CELL DISTRIBUTION WIDTH 18.3 % (11.5-14.5)
[2025-01-30 11:57] LABS: INR 1.22; PARTIAL THROMBOPLASTIN TIME 32.5 SECONDS (22.0-34.0); PROTHROMBIN TIME 13.1 SECONDS (9.0-11.5)
[2025-01-30 12:01] LABS: ALBUMIN 2.3 gm/dL (3.4-5.0); BILIRUBIN TOTAL 0.64 mg/dL (0.3-1.2); CALCIUM 8.8 mg/dL (8.5-10.1); CREATININE SERUM 0.37 mg/dL (0.70-1.30); GFR 223.17; GLOBULINA 3.1 G/DL (2.4-3.5); POTASSIUM 3.64 mEq/L (3.5-5.1); TOTAL PROTEIN 5.4 gm/dL (6.4-8.2)
[2025-01-30 12:26] LABS: ABG PH 7.415 (7.35-7.45); ABG PO2 119.2 mmHg (80-100); ABG pCO2 36.4 mmHg (35-45); BASE EXCESS -1.2 mmol/l; BICARBONATE 22.8 mmol/l (23-25); SaO2 98.7 %; Tco2 23.9 mmol/l
[2025-01-30 12:34] LABS: allen test SATISFACTORY; o2 60 %; puncture site RADIAL RIGHT
[2025-01-30] MEDS ORDERED: ERTAPENEM SODIUM 1,000 MG in 0.9 % SODIUM CHLORIDE 50 ML IV SCH (13:16)
[2025-01-30] MEDS ORDERED: METHYLPREDNISOLONE SOD SUCC 40 MG VIAL IV STA (13:18)
[2025-01-30] MEDS ORDERED: EMOLLIENTS 6 OZ BOTTLE TOP SCH (13:25)
[2025-01-30] MEDS ORDERED: MEROPENEM 500 MG/VIAL VIAL IV SCH (13:37)
[2025-01-30 15:40] VITALS: BP 106/58; O2SAT 98
[2025-01-30 16:16] LABS: PH,URINE 5.5 (5.0-8.0); URINE APPEARANCE Clear; URINE BILIRRUBIN Negative (NEGATIVE); URINE BLOOD Negative; URINE COLOR Yellow; URINE LEUKOCYTE Negative; URINE NITRATE Negative; URINE PROTEIN 30 (NEGATIVE); URINE UROBILINOGEN 0.2 E.U./dl
[2025-01-30 16:20] LABS: URINE BACTERIA 8.5 uL (0.0-1933); URINE EPITHELIAL CELLS 5.2 uL (0.0-38.8); URINE RBC 4.8 uL (0.0-20.8); URINE WBC 2.5 uL (0.0-23.2)
[2025-01-30 16:22] LABS: URINE GLUCOSE >=1000 MG/DL (NEGATIVE); URINE KETONE 40 (NEGATIVE)
[2025-01-30 16:23] LABS: URINE CAST 0.29 uL (0.0-1.40)
[2025-01-30 21:00] VITALS: O2SAT 97
[2025-01-30] MEDS ORDERED: FAMOTIDINE/PF 20 MG/2 ML VIAL IV SCH (21:00)
[2025-01-30] MEDS ORDERED: METHYLPREDNISOLONE SOD SUCC 40 MG VIAL IV SCH (21:00)
[2025-01-30] MEDS ORDERED: XARELTO 2.5 MG PO SCH (21:00)
[2025-01-31] VITALS (7 sets, daily range): BP systolic 92–138; BP diastolic 68–80; O2SAT 90–100
[2025-01-31 07:40] LABS: HEMATOCRIT 35.2 % (39.0-48.0); HEMOGLOBIN 11.8 g/dL (13-16.00); MEAN CELL VOLUME 94.6 fL (80.0-100.00); MEAN CORPUSCULAR HEMOGLOBIN 31.6 pg (27.00-32.0); MEAN CORPUSCULAR HGB CONC 33.4 g/dl (32.0-36.0); PLATELET COUNT 361 K/uL (150-450); RED BLOOD COUNT 3.72 M/uL (4.00-6.00); RED CELL DISTRIBUTION WIDTH 18.4 % (11.5-14.5)
[2025-01-31 08:16] LABS: ALBUMIN 2.2 gm/dL (3.4-5.0); BILIRUBIN TOTAL 0.74 mg/dL (0.3-1.2); CALCIUM 8.7 mg/dL (8.5-10.1); GLOBULINA 2.6 G/DL (2.4-3.5); POTASSIUM 4.06 mEq/L (3.5-5.1); TOTAL PROTEIN 4.8 gm/dL (6.4-8.2); TSH 1.23 uIU/mL (0.358-3.74)
[2025-01-31 08:18] LABS: C-REACTIVE PROTEIN 3.57 MG/DL (0.00-0.29); CREATININE SERUM 0.18 mg/dL (0.70-1.30)
[2025-01-31] MEDS ORDERED: ASPIRIN 81 MG TABLET.EC PO SCH (09:00)
[2025-01-31] MEDS ORDERED: LACTOBACILLUS ACIDOPHILUS 1 CAP CAP PO SCH (09:00)
[2025-01-31] MEDS ORDERED: GUAIFENESIN 600 MG TABLET.SA PO SCH (09:00)
[2025-01-31] MEDS ORDERED: ENTRESTO 24 MG/26 MG PO SCH (09:00)
[2025-01-31] MEDS ORDERED: levoFLOXacin IN DEXTROSE 5 % 5 MG/ML PIGGYBAG IV STA (09:27)
[2025-01-31] MEDS ORDERED: LINEZOLID IN DEXTROSE 5% 300 ML IV SCH ×2 (09:30→17:00)
[2025-01-31] MEDS ORDERED: ENOXAPARIN SODIUM 40 MG/0.4 ML SYRINGE SUBCUTANEO SCH (21:00)
[2025-01-31] MEDS ORDERED: TAMSULOSIN HCL 0.4 MG CAP PO SCH (21:00)
[2025-01-31] MEDS ORDERED: POLYETHYLENE GLYCOL 3350 17 GM BLIST.PACK PO SCH (21:00)
[2025-02-01] VITALS (8 sets, daily range): BP systolic 104–126; BP diastolic 73–79; O2SAT 92–100
[2025-02-01] MEDS ORDERED: AMINO ACIDS/PROTEIN HYDROLYS 30 ML BLIST.PACK PO SCH (09:00)
[2025-02-01] MEDS ORDERED: PREDNISONE 10 MG TABLET PO SCH (17:00)
[2025-02-02 00:37] VITALS: BP 101/76; O2SAT 98
[2025-02-02 08:16] LABS: HEMATOCRIT 33.4 % (39.0-48.0); MEAN CELL VOLUME 95.9 fL (80.0-100.00); MEAN CORPUSCULAR HEMOGLOBIN 31.7 pg (27.00-32.0); PLATELET COUNT 300 K/uL (150-450); RED BLOOD COUNT 3.48 M/uL (4.00-6.00); RED CELL DISTRIBUTION WIDTH 18.4 % (11.5-14.5)
[2025-02-02 08:34] LABS: BILIRUBIN TOTAL 0.41 mg/dL (0.3-1.2); CALCIUM 8.5 mg/dL (8.5-10.1); GLOBULINA 2.3 G/DL (2.4-3.5); POTASSIUM 3.9 mEq/L (3.5-5.1); TOTAL PROTEIN 4.3 gm/dL (6.4-8.2)
[2025-02-02] MEDS ORDERED: levoFLOXacin IN DEXTROSE 5 % 5 MG/ML PIGGYBAG IV SCH (09:00)
[2025-02-02 09:04] LABS: C-REACTIVE PROTEIN 1.64 MG/DL (0.00-0.29); CREATININE SERUM 0.21 mg/dL (0.70-1.30); PHOSPHOROUS 1.7 mg/dL (2.5-4.9)
[2025-02-02 10:16] VITALS: BP 90/55; O2SAT 98
[2025-02-02] MEDS ORDERED: POTASSIUM PHOS,M-BASIC-D-BASIC 3 MM/ML VIAL IV NR (12:00)
[2025-02-02 13:47] VITALS: O2SAT 89
[2025-02-02 15:55] VITALS: BP 97/59; O2SAT 96
[2025-02-02] MEDS ORDERED: LINEZOLID 600 MG TABLET PO SCH (17:00)
[2025-02-02 17:44] VITALS: O2SAT 100
[2025-02-02] MEDS ORDERED: FAMOtidine 20 MG TABLET PO SCH (21:00)
[2025-02-02 21:39] VITALS: O2SAT 99
[2025-02-03] VITALS: O2SAT 97
[2025-02-03 01:00] VITALS: O2SAT 98
[2025-02-03 06:18] VITALS: O2SAT 96
[2025-02-03] MEDS ORDERED: FUROsemide 20 MG/2 ML VIAL IV SCH ×2 (09:05→09:45)
[2025-02-03] MEDS ORDERED: ALBUTEROL SULFATE 3 ML/2.5 MG AMPUL.NEB IH SCH (09:05)
[2025-02-03] MEDS ORDERED: SODIUM CHLORIDE FOR INHALATION 1 VIAL.NEB IH SCH (09:06)
[2025-02-03] MEDS ORDERED: ALBUMIN HUMAN 100 ML VIAL IV SCH (09:46)
[2025-02-03 10:13] VITALS: O2SAT 82
[2025-02-03 10:13] LABS: ABG PH 7.433 (7.35-7.45); ABG PO2 204.6 mmHg (80-100); ABG pCO2 33.1 mmHg (35-45); BASE EXCESS -1.7 mmol/l; BICARBONATE 21.7 mmol/l (23-25); SaO2 99.7 %; Tco2 22.7 mmol/l
[2025-02-03] MEDS ORDERED: FLUCONAZOLE IN NACL,ISO-OSM 50 ML IV SCH (11:30)
[2025-02-03 11:44] LABS: allen test SATISFACTORY; o2 100 %; puncture site RADIAL RIGHT
[2025-02-03] MEDS ORDERED: CEFTAZIDIME/AVIBACTAM 1.25GM/100ML NSS PB IV STA (12:56)
[2025-02-03] MEDS ORDERED: AMPICILLIN SODIUM/SULBACTAM NA 3,000 MG VIAL IV SCH (13:00)
[2025-02-03 13:10] VITALS: O2SAT 93
[2025-02-03] MEDS ORDERED: CEFTAZIDIME/AVIBACTAM 1.25GM/100ML NSS PB IV SCH (17:00)
[2025-02-03] MEDS ORDERED: SULFAMETHOXAZOLE/TRIMETHOPRIM 16 MG/ML 10ML VIAL IV SCH (17:00)
[2025-02-03] MEDS ORDERED: FLUCONAZOLE IN NACL,ISO-OSM 2 MG/ML ML IV SCH (17:00)
[2025-02-03 17:03] VITALS: BP 100/64; O2SAT 98
[2025-02-03] MEDS ORDERED: ENOXAPARIN SODIUM 40 MG/0.4 ML SYRINGE SUBCUTANEO STA (18:50)
[2025-02-03] MEDS ORDERED: LINEZOLID IN DEXTROSE 5% 300 ML IV SCH (21:00)
[2025-02-04] VITALS (8 sets, daily range): BP systolic 79–164; BP diastolic 49–82; O2SAT 76–100
[2025-02-04] MEDS ORDERED: PREDNISONE 10 MG TABLET PO SCH (09:00)
[2025-02-04] MEDS ORDERED: levoFLOXacin 750 MG TABLET PO SCH (09:00)
[2025-02-04] MEDS ORDERED: PREDNISONE 5 MG TABLET PO SCH (17:00)
[2025-02-04 22:11] LABS: TP PLEURAL FLUID 1.8 g/dl
[2025-02-04 22:22] LABS: MONONUCLEAR 90 %; PLEURAL FLUID APPEARANCE HAZY; PLEURAL FLUID COLOR YELLOW; POLYMORPHONUCLEAR 10 %
[2025-02-05 00:16] VITALS: BP 130/71; O2SAT 94
[2025-02-05 08:53] VITALS: BP 86/60; O2SAT 96
[2025-02-05] MEDS ORDERED: METHYLPREDNISOLONE SOD SUCC 40 MG VIAL IV SCH (09:00)
[2025-02-05 10:33] LABS: CALCIUM 8.3 mg/dL (8.5-10.1); MAGNESIUM 1.9 mg/dL (1.8-2.4)
[2025-02-05 10:36] LABS: GFR 321.02
[2025-02-05 10:37] LABS: PHOSPHOROUS 1.5 mg/dL (2.5-4.9); POTASSIUM 2.63 mEq/L (3.5-5.1)
[2025-02-05] MEDS ORDERED: POTASSIUM CHLORIDE 20MEQ/100ML H2O PB IV NR (11:00)
[2025-02-05] MEDS ORDERED: POTASSIUM PHOS,M-BASIC-D-BASIC 15 MM in 0.9 % SODIUM CHLORIDE 250 ML IV NR (11:00)
[2025-02-05 12:51] LABS: CREATININE SERUM 0.27 mg/dL (0.70-1.30)
[2025-02-05 13:08] LABS: MEAN CELL VOLUME 94.8 fL (80.0-100.00); MEAN CORPUSCULAR HEMOGLOBIN 31.8 pg (27.00-32.0); MEAN CORPUSCULAR HGB CONC 33.5 g/dl (32.0-36.0); PLATELET COUNT 152 K/uL (150-450); RED BLOOD COUNT 3.16 M/uL (4.00-6.00); RED CELL DISTRIBUTION WIDTH 17.5 % (11.5-14.5)
[2025-02-05 13:28] VITALS: O2SAT 100
[2025-02-05 16:21] VITALS: O2SAT 98
[2025-02-05 16:22] VITALS: BP 94/60; O2SAT 94
[2025-02-05 21:01] VITALS: O2SAT 100
[2025-02-06] VITALS (9 sets, daily range): BP systolic 76–146; BP diastolic 48–73; O2SAT 95–100
[2025-02-06] MEDS ORDERED: HYDROCORTISONE SODIUM SUCC/PF 100 MG VIAL IV STA (11:55)
[2025-02-06] MEDS ORDERED: HYDROCORTISONE SODIUM SUCC/PF 50 MG/ML ML IV SCH (18:00)
[2025-02-07] VITALS (9 sets, daily range): BP systolic 90–139; BP diastolic 49–69; O2SAT 87–97
[2025-02-07 07:43] LABS: HEMATOCRIT 31.2 % (39.0-48.0); HEMOGLOBIN 10.4 g/dL (13-16.00); MEAN CELL VOLUME 94.9 fL (80.0-100.00); MEAN CORPUSCULAR HEMOGLOBIN 31.6 pg (27.00-32.0); MEAN CORPUSCULAR HGB CONC 33.3 g/dl (32.0-36.0); RED BLOOD COUNT 3.29 M/uL (4.00-6.00); RED CELL DISTRIBUTION WIDTH 17.8 % (11.5-14.5)
[2025-02-07 07:56] LABS: PLATELET COUNT 95 K/uL (150-450)
[2025-02-07 08:26] LABS: ALBUMIN 2.2 gm/dL (3.4-5.0); BILIRUBIN TOTAL 0.29 mg/dL (0.3-1.2); MAGNESIUM 1.7 mg/dL (1.8-2.4); POTASSIUM 3.23 mEq/L (3.5-5.1); TOTAL PROTEIN 4.2 gm/dL (6.4-8.2)
[2025-02-07 08:42] LABS: GFR 295.61
[2025-02-07 08:44] LABS: PHOSPHOROUS 1.7 mg/dL (2.5-4.9)
[2025-02-07 08:45] LABS: CREATININE SERUM 0.29 mg/dL (0.70-1.30)
[2025-02-07] MEDS ORDERED: MAGNESIUM SULFATE IN WATER 4 GM/100 ML PIGGYBACK IV NR (12:00)
[2025-02-07] MEDS ORDERED: POTASSIUM CHLORIDE IN WATER 100 ML IV NR (12:00)
[2025-02-07] MEDS ORDERED: POTASSIUM PHOS,M-BASIC-D-BASIC 15 MM in 0.9 % SODIUM CHLORIDE 250 ML IV NR (13:30)
[2025-02-08] VITALS (7 sets, daily range): BP systolic 81–98; BP diastolic 52–58; O2SAT 83–96
[2025-02-08] MEDS ORDERED: VANCOMYCIN HCL 125 MG CAPSULE PO SCH (13:00)
[2025-02-08 13:10] LABS: HEMATOCRIT 30.1 % (39.0-48.0); HEMOGLOBIN 10.1 g/dL (13-16.00); MEAN CELL VOLUME 93.7 fL (80.0-100.00); MEAN CORPUSCULAR HEMOGLOBIN 31.3 pg (27.00-32.0); MEAN CORPUSCULAR HGB CONC 33.5 g/dl (32.0-36.0); RED BLOOD COUNT 3.21 M/uL (4.00-6.00); RED CELL DISTRIBUTION WIDTH 17.5 % (11.5-14.5)
[2025-02-08 13:11] LABS: PLATELET COUNT 74 K/uL (150-450)
[2025-02-08 13:35] LABS: CALCIUM 7.9 mg/dL (8.5-10.1); PHOSPHOROUS 2.2 mg/dL (2.5-4.9); POTASSIUM 3.57 mEq/L (3.5-5.1)
[2025-02-08 13:44] LABS: MANUAL PLATELET COUNT 112
[2025-02-08 13:57] LABS: CREATININE SERUM 0.26 mg/dL (0.70-1.30)
[2025-02-08] MEDS ORDERED: INSULIN LISPRO 1,000 UNIT/10 ML UNITS SUBCUTANEO PRN (14:30)
[2025-02-08] MEDS ORDERED: DEXTROSE 50 % IN WATER 0.5 G/ML DISP.SYRIN IV PRN (14:30)
[2025-02-08 17:02] LABS: ABG PH 7.406 (7.35-7.45); ABG pCO2 45.1 mmHg (35-45); BASE EXCESS 2.4 mmol/l; BICARBONATE 27.6 mmol/l (23-25); SaO2 43.7 %
[2025-02-08 20:21] LABS: ABG PO2 24.4 mmHg (80-100); allen test SATISFACTORY; puncture site RADIAL RIGHT
[2025-02-08 20:22] LABS: o2 50 %
[2025-02-09] VITALS (10 sets, daily range): BP systolic 90–120; BP diastolic 42–62; O2SAT 71–100
[2025-02-09 11:42] LABS: ABG PH 7.395 (7.35-7.45); ABG pCO2 45.2 mmHg (35-45); BASE EXCESS 1.6 mmol/l; SaO2 84.5 %; Tco2 28.4 mmol/l
[2025-02-09 12:20] LABS: ABG PO2 49.3 mmHg (80-100)
[2025-02-09 12:21] LABS: allen test SATISFACTORY; o2 50 %; puncture site RADIAL RIGHT
[2025-02-09 12:51] LABS: HEMATOCRIT 25.1 % (39.0-48.0); MEAN CORPUSCULAR HGB CONC 33.5 g/dl (32.0-36.0); RED BLOOD COUNT 2.67 M/uL (4.00-6.00); RED CELL DISTRIBUTION WIDTH 17.2 % (11.5-14.5)
[2025-02-09 12:57] LABS: HEMOGLOBIN 8.4 g/dL (13-16.00); MEAN CORPUSCULAR HEMOGLOBIN 31.4 pg (27.00-32.0); PLATELET COUNT 47 K/uL (150-450)
[2025-02-09] MEDS ORDERED: HYDROCORTISONE SODIUM SUCC/PF 50 MG/ML ML IV SCH (13:00)
[2025-02-09 13:02] LABS: ALBUMIN 1.9 gm/dL (3.4-5.0); BILIRUBIN TOTAL 0.24 mg/dL (0.3-1.2); CALCIUM 7.6 mg/dL (8.5-10.1); CREATININE SERUM 0.3 mg/dL (0.70-1.30); GLOBULINA 1.8 G/DL (2.4-3.5); MAGNESIUM 2.2 mg/dL (1.8-2.4); PHOSPHOROUS 2.2 mg/dL (2.5-4.9); POTASSIUM 3.25 mEq/L (3.5-5.1); TOTAL PROTEIN 3.7 gm/dL (6.4-8.2)
[2025-02-09] MEDS ORDERED: FUROsemide 20 MG/2 ML VIAL IV SCH (14:00)
[2025-02-09] MEDS ORDERED: VANCOMYCIN HCL 125 MG CAPSULE PO SCH (17:00)
[2025-02-09 18:48] LABS: INR 1.23; PROTHROMBIN TIME 13.2 SECONDS (9.0-11.5)
[2025-02-09 18:52] LABS: PARTIAL THROMBOPLASTIN TIME 55.2 SECONDS (22.0-34.0)
[2025-02-10] VITALS: BP 96/61; O2SAT 97
[2025-02-10 00:36] VITALS: O2SAT 94
[2025-02-10 01:08] LABS: ABG PH 7.319 (7.35-7.45); ABG PO2 118.7 mmHg (80-100); ABG pCO2 59.2 mmHg (35-45); BICARBONATE 29.8 mmol/l (23-25); SaO2 98.2 %; Tco2 31.6 mmol/l
[2025-02-10 02:19] LABS: allen test SATISFACTORY; puncture site RADIAL RIGHT
[2025-02-10 02:20] LABS: o2 100 %
[2025-02-10 05:51] VITALS: O2SAT 97
[2025-02-10 08:59] VITALS: O2SAT 99
[2025-02-10 09:41] LABS: ABG PH 7.287 (7.35-7.45); ABG PO2 147.1 mmHg (80-100); ABG pCO2 59.1 mmHg (35-45); BASE EXCESS -0.4 mmol/l; BICARBONATE 27.6 mmol/l (23-25); SaO2 98.9 %; Tco2 29.4 mmol/l
[2025-02-10] MEDS ORDERED: PHYTONADIONE 10 MG/ML AMPUL IV STA (09:49)
[2025-02-10] MEDS ORDERED: FUROsemide 20 MG/2 ML VIAL IV SCH ×2 (13:00→17:00)
[2025-02-10] MEDS ORDERED: ALBUMIN HUMAN-25 0.25GM/ML (50ML) VIAL IV SCH (13:00)
[2025-02-10 16:27] LABS: allen test SATISFACTORY; o2 100 %; puncture site RADIAL RIGHT
[2025-02-10] MEDS ORDERED: ALBUMIN HUMAN 100 ML VIAL IV SCH (17:00)
[2025-02-10 18:20] VITALS: BP 87/57
[2025-02-10 21:07] VITALS: O2SAT 98
[2025-02-11 00:39] VITALS: O2SAT 100
[2025-02-11 00:45] VITALS: BP 51/49; O2SAT 89
[2025-02-11 04:46] VITALS: O2SAT 0
== END 2025-02-11 11:49 | disposition expired | DRG 194 ==
LOC: ER 10:23 → SEC-K 14:42 → SURG 14:42 → SURH 02-03 13:24
PROVIDERS: Emergency Medicine; Internal Medicine; Radiology Vascular & Interventional Radiology; ADMIT Internal Medicine Geriatric Medicine; ATTEND Internal Medicine Geriatric Medicine
PROC: 4A12X4Z Monitoring of Cardiac Electrical Activity, External Approach (ICD-10-PCS; 2025-01-30)
PROC: BW24ZZZ Computerized Tomography (CT Scan) of Chest and Abdomen (ICD-10-PCS; 2025-01-30)
PROC: 0W993ZX Drainage of Right Pleural Cavity, Percutaneous Approach, Diagnostic (ICD-10-PCS; principal; 2025-02-03)
PROC: B54MZZZ Ultrasonography of Right Upper Extremity Veins (ICD-10-PCS; 2025-02-03)
PROC: 30233R1 Transfusion of Nonautologous Platelets into Peripheral Vein, Percutaneous Approach (ICD-10-PCS; 2025-02-09)
PROC: BW24ZZZ Computerized Tomography (CT Scan) of Chest and Abdomen (ICD-10-PCS; 2025-02-09)
PROC: 30233N1 Transfusion of Nonautologous Red Blood Cells into Peripheral Vein, Percutaneous Approach (ICD-10-PCS; 2025-02-10)
DX: J18.9 Pneumonia, unspecified organism (principal); E27.3 Drug-induced adrenocortical insufficiency; I50.20 Unspecified systolic (congestive) heart failure; E87.1 Hypo-osmolality and hyponatremia; R09.02 Hypoxemia; I95.89 Other hypotension; D69.6 Thrombocytopenia, unspecified; R00.1 Bradycardia, unspecified; D64.9 Anemia, unspecified; I11.0 Hypertensive heart disease with heart failure; I73.9 Peripheral vascular disease, unspecified; T38.0X5A Adverse effect of glucocorticoids and synthetic analogues, initial encounter; I25.10 Atherosclerotic heart disease of native coronary artery without angina pectoris; I80.8 Phlebitis and thrombophlebitis of other sites; L97.529 Non-pressure chronic ulcer of other part of left foot with unspecified severity; L08.9 Local infection of the skin and subcutaneous tissue, unspecified; B95.2 Enterococcus as the cause of diseases classified elsewhere; B96.20 Unspecified Escherichia coli [E. coli] as the cause of diseases classified elsewhere; B96.89 Other specified bacterial agents as the cause of diseases classified elsewhere; L89.622 Pressure ulcer of left heel, stage 2; L89.151 Pressure ulcer of sacral region, stage 1